=== PATIENT | male | born 1960 | race Caucasian/White ===

== ENCOUNTER 2019-07-07 18:53 | Emergency (ER) | payer OTHER ==
[~2019-07-07] VITALS: Ht 180.3 cm; Wt 120.2 kg
[2019-07-07 18:55] VITALS: Ht 180.3 cm; Wt 120.2 kg
[2019-07-07 23:12] VITALS: BP 121/72
== END 2019-07-07 23:12 | disposition home or self-care (01) ==
LOC: ED 18:53
DX: M54.41 Lumbago with sciatica, right side (principal)
CPT/HCPCS: J1170; J1885